=== PATIENT | male | born 1990 | race Caucasian/White ===

== ENCOUNTER 2019-02-17 19:08 | Emergency (ER) | payer OTHER ==
[2019-02-17] MEDS ORDERED: NS 0.9% 1000 ML** 1,000 ML IV ONE (23:38)
--- NOTE | 2019-02-17 23:49 | ED ---
Complex/Multi-Sys Presentation - HPI Summary HPI Summary: Patient is a 28 y/o M presenting to ED with multiple complaints, specifically, fever, abdominal cramping, diarrhea, bloating, chills, SOB, left flank pain. He states that he had episodes of chills two weeks ago. The following day, he had a "light fever" of 99.7 F alongside abdominal cramping, diarhea, and bloating. Fever spontaneously resolved, but he reports remaining Sx persisted for the next two days. Sx resolved ten days ago but onset again around 5-6 days ago. Sx have been progressively worsening since then. He states that he had some SOB last night, 02/16/19. Patient had SOB today as well, but states it resolved while he was in waiting room. He additionally states that he had some left flank pain onset today prior to arriving. Vomiting is denied. Patient is on finasteride to treat hair loss. On triage, pain is rated 2/10, nothing is noted to aggravate/ alleviate Sx, patient took Tylenol at 1800 02/17/19. Home medications and allergies are reviewed. - History Of Current Complaint Chief Complaint: EDUpperRespComplaint Time Seen by Provider: 02/17/19 23:29 Hx Obtained From: Patient Onset/Duration: Lasting Hours - flank pain, SOB, Lasting Days - abdominal Sx, Still Present, Resolved - fever, SOB Timing: Hours - flank pain, SOB, Days - abdominal Sx Severity Currently: Mild Location: Pain At: - abdomen Character: Throbbing - cramping Aggravating Factor(s): nothing Alleviating Factor(s): nothing Associated Signs And Symptoms: Positive: SOB, Diarrhea, Abdominal Pain, Fever, Other - positive - chills, bloating, left flank pain. Negative: Vomiting - Allergies/Home Medications Allergies/Adverse Reactions: Allergies Allergy/AdvReac Type Severity Reaction Status Date / Time nickel Allergy Rash And Verified 02/17/19 19:29 Itching Home Medications: Home Medications Finasteride [Propecia] 1 mg PO DAILY 02/17/19 [History Confirmed 02/17/19] PMH/Surg Hx/FS Hx/Imm Hx Sensory History: Denies: Hx Legally Blind, Hx Deafness Opthamlomology History: Denies: Hx Legally Blind EENT History: Denies: Hx Deafness Infectious Disease History: No Infectious Disease History: Denies: Traveled Outside the [place] in Last 30 Days - Family History Known Family History: Negative: Hypertension - Social History Alcohol Use: None Substance Use Type: Reports: None Smoking Status (MU): Never Smoked Tobacco Review of Systems Positive: Fever, Chills Positive: Shortness Of Breath Gastrointestinal: Other - positive - abdominal bloating Positive: Abdominal Pain - cramping, Diarrhea. Negative: Vomiting Positive: flank pain - left All Other Systems Reviewed And Are Negative: Yes Physical Exam - Summary Physical Exam Summary: VITAL SIGNS: Reviewed. GENERAL: Patient is a well-developed and nourished male who is lying comfortable in the stretcher. Patient is not in any acute respiratory distress. HEAD AND FACE: No signs of trauma. No ecchymosis, hematomas or skull depressions. No sinus tenderness. EYES: PERRLA, EOMI x 2, No injected conjunctiva, no nystagmus. EARS: Hearing grossly intact. Ear canals and tympanic membranes are within normal limits. MOUTH: Oropharynx within normal limits. NECK: Supple, trachea is midline, no adenopathy, no JVD, no carotid bruit, no c- spine tenderness, neck with full ROM CHEST: Symmetric, no tenderness at palpation LUNGS: Clear to auscultation bilaterally. No wheezing or crackles. CVS: Regular rate and rhythm, S1 and S2 present, no murmurs or gallops appreciated. ABDOMEN: Soft, non-tender. No signs of distention. No rebound no guarding, and no masses palpated. Bowel sounds are normal. EXTREMITIES: FROM in all major joints, no edema, no cyanosis or clubbing. NEURO: Alert and oriented x 3. No acute neurological deficits. Speech is normal and follows commands. SKIN: Dry and warm Triage Information Reviewed: Yes Vital Signs On Initial Exam: Initial Vitals Temp Pulse Resp BP Pulse Ox 98.7 F 91 16 141/91 100 02/17/19 19:26 02/17/19 19:26 02/17/19 19:26 02/17/19 19:26 02/17/19 19:26 Vital Signs Reviewed: Yes Diagnostics - Vital Signs Vital Signs Temp Pulse Resp BP Pulse Ox 02/17/19 21:37 97.9 F 79 16 126/73 100 02/17/19 19:26 98.7 F 91 16 141/91 100 - Laboratory Result Diagrams: 02/17/19 23:56 02/17/19 23:56 Lab Statement: Any lab studies that have been ordered have been reviewed, and results considered in the medical decision making process. - Radiology CXR Radiology Interpretation Completed By: ED Physician Summary of Radiographic Findings: No acute process, pending official report. - CT CT ABD/PEL CT Interpretation Completed By: Radiologist Summary of CT Findings: CHEST CT IMPRESSION: No CT findings to correlate with patient's symptomatology. Specifically no. infectious source. ABD/PEL CT IMPRESSION: Findings consistent with mesenteric adenitis and associated terminal ileitis. THIS REPORT WAS REVIEWED BY DR. CHI. Complex Multi-Symp Course/Dx Course Of Treatment: Patient is a 28 y/o M presenting to ED with multiple complaints, specifically, fever, abdominal cramping, diarrhea, bloating, chills , SOB, left flank pain. He states that he had episodes of chills two weeks ago. The following day, he had a "light fever" of 99.7 F alongside abdominal cramping , diarhea, and bloating. Fever spontaneously resolved, but he reports remaining Sx persisted for the next two days. Sx resolved ten days ago but onset again around 5-6 days ago. Sx have been progressively worsening since then. He states that he had some SOB last night, 02/16/19. Patient had SOB today as well, but states it resolved while he was in waiting room. He additionally states that he had some left flank pain onset today prior to arriving. Vomiting is denied. Physical exam is unremarkable. Labs showed WBC 17.1, Hgb 13.4, MPV 6.9, absolute neuts 12.5, absolute monos 1.6, anion gap 12, CRP 42.45, globulin 4.2, lactic acid 0.9. UA showed 1+ ketones. Monoscreen and group A strep rapid were negative. CXR showed no acute process. CHEST CT IMPRESSION: No CT findings to correlate with patient's symptomatology. Specifically no. infectious source. ABD/PEL CT IMPRESSION: Findings consistent with mesenteric adenitis and associated terminal ileitis. During ED course, patient was given fluids, augmentin 875 mg PO. Patient was discharged to home with prescription for augmentin, he will follow up with PCP within three days. - Diagnoses Provider Diagnoses: Terminal ileitis Discharge - Sign-Out/Discharge Documenting (check all that apply): Patient Departure - discharge Patient Received Moderate/Deep Sedation with Procedure: No - Discharge Plan Condition: Stable Disposition: HOME Prescriptions: Amoxicillin/Clavulanate TAB* [Augmentin TAB 875*] 875 mg PO BID #[id number] tab Patient Education Materials: Enteritis (ED) Referrals: [facility] [address] [Outside] - 3 Days Additional Instructions: PLEASE RETURN TO ED FOR ANY NEW OR WORSENING SYMPTOMS. FOLLOW UP WITH YOUR PRIMARY CARE PHYSICIAN WITHIN THREE DAYS. - Attestation Statements Document Initiated by Scribe: Yes Documenting Scribe: RAFI NUGENT Provider For Whom Susane is Documenting (Include Credential): BENTLEY CHI MD Scribe Attestation: I, RAFI NUGENT, scribed for BENTLEY CHI MD on 02/18/19 at 0453. Status of Scribe Document: Ready
[2019-02-18 00:03] LABS: Hematocrit 40 % (42-52); Hemoglobin 13.4 g/dL (14.0-18.0); Mean Corpuscular HGB Conc 33 g/dL (31-36); Mean Corpuscular Hemoglobin 28 pg (27-31); Mean Corpuscular Volume 84 fL (80-94); Mean Platelet Volume 6.9 fL (7.4-10.4); Platelet Count 259 10^3/uL (150-450); Red Blood Count 4.75 10^6 /uL (4.18-5.48); Red Cell Distribution Width 13 % (10-15); White Blood Count 17.1 10^3/uL (3.5-10.8)
[2019-02-18 00:20] LABS: Albumin 4.4 g/dL (3.2-5.2); BUN/Creatinine Ratio 10.6 (8-20); Calcium 9.5 mg/dL (8.6-10.3); EGFR African American 103.7 (>60); EGFR Non-African American 85.7 (>60); Globulin 4.2 g/dL (2-4); Total Bilirubin 0.5 mg/dL (0.2-1.0); Total Protein 8.6 g/dL (6.4-8.9)
[2019-02-18 00:49] LABS: ABS Basophils 0.1 10^3/ul (0-0.2); ABS Eosinophils 0.3 10^3/ul (0-0.6); ABS Lymphocytes 2.6 10^3/ul (1.0-4.8); ABS Monocytes 1.6 10^3/ul (0-0.8); ABS Neutrophils 12.5 10^3/ul (1.5-7.7); Lymphocyte % 15.1 %
[2019-02-18 01:19] LABS: C Reactive Protein 42.45 mg/L (<8.01)
[2019-02-18] MEDS ORDERED: Iohexol 300* (CONTRAST) 10 ML SDV IV ONE (01:34)
[2019-02-18 01:49] LABS: Rapid Strep Molecular Negative (Negative)
[2019-02-18] MEDS ORDERED: NS 0.9% 1000 ML** 1,000 ML IV ONE (03:03)
[2019-02-18 03:34] LABS: Urine Appearance Clear; Urine Bilirubin Negative (Negative); Urine Blood Negative (Negative); Urine Color Yellow; Urine Glucose Negative (Negative); Urine Ketones 1+ (Negative); Urine Nitrite Negative (Negative); Urine Protein Negative (Negative); Urine Urobilinogen Negative (Negative)
[2019-02-18] MEDS ORDERED: Amoxicillin/Clavulanate TAB* 875 MG PO ONE (04:15)
[2019-02-18 04:24] VITALS: BP 119/76
--- NOTE | 2019-02-19 15:33 | PN ---
Progress Note - Progress Note Date of Service: 02/17/19 Note: Pt. seen for abd. pain and fever. He was dx with mesenteric adenitis vs ileitis. He was tx with Augmentin. Lyme ab was performed and is positive today, pending confirmatory testing. Attempted to call pt. today at 1531, with no answer. Message left to return call. Will try to call again tomorrow.
== END 2019-02-18 05:03 | disposition home or self-care (01) ==
LOC: ED 19:08
DX: K50.00 Crohn's disease of small intestine without complications (principal); R06.02 Shortness of breath; R50.9 Fever, unspecified; Z91.048 Other nonmedicinal substance allergy status
CPT/HCPCS: 36415; 71046; 71260; 74177; 80053; 81003; 83605; 85025; 86140; 86308; 86617; 86618; 87040; 87651; 96360; 96361; 99284; A9270-GY; Q9967